=== PATIENT | female | born 1965 | race Caucasian/White ===

== ENCOUNTER → 2023-07-04 09:02 | Outpatient (REF) | payer OTHER, SELFPAY | LOC: RSP 09:02 | PROVIDERS: ATTENDING PHYSICIAN Family Medicine | DX: J45.20 Mild intermittent asthma, uncomplicated (principal) | CPT/HCPCS: 94727; 94729; 88738; 94060 ==

== ENCOUNTER → 2023-09-20 09:35 | Outpatient (REF) | payer OTHER, SELFPAY | LOC: HWRAD 09:35 | PROVIDERS: ATTENDING PHYSICIAN Internal Medicine Critical Care Medicine; FAMILY PHYSICIAN Family Medicine | DX: R06.02 Shortness of breath (principal); R06.89 Other abnormalities of breathing; J98.4 Other disorders of lung | CPT/HCPCS: 71275; Q9967 ==

== ENCOUNTER → 2024-06-17 10:50 | Outpatient (REF) | payer OTHER, SELFPAY | LOC: EMG 10:50 | PROVIDERS: ATTENDING PHYSICIAN Family Medicine | DX: R20.2 Paresthesia of skin (principal) | CPT/HCPCS: 95886; 95909 ==

== ENCOUNTER → 2025-03-25 08:57 | Outpatient (REF) | payer OTHER, SELFPAY | LOC: DHVS 08:57 | PROVIDERS: ATTENDING PHYSICIAN Family Medicine | DX: I83.893 Varicose veins of bilateral lower extremities with other complications (principal); M25.551 Pain in right hip; M54.50 Low back pain, unspecified | CPT/HCPCS: 72110; 73502; 93970 ==